=== PATIENT | male | born 1940 | race Caucasian/White ===

== ENCOUNTER 2018-06-15 06:09 | Day surgery (SDC) | payer MEDICARE ==
[2018-06-12 14:31] VITALS: BMI 25.8
[~2018-06-15 06:09] MED LIST: HYDROmorphone 0.5 MG/0.5 ML SYRINGE IVP PRN; LACTATED RINGERS 1,000 ML IV SCH; LIDOCAINE 1% 20 ML VIAL (10MG/ML) FOR IV START INTRADERMA PRN; ONDANSETRON 4 MG/2 ML VIAL IVP ONE; Pre Op ABX Message 1 EACH MISC MISCELLANE ONE
[2018-06-15 07:15] VITALS: TEMP 97.8
[2018-06-15] MEDS ORDERED: ONDANSETRON 4 MG/2 ML VIAL IVP ONE (07:28)
[2018-06-15] MEDS ORDERED: LIDOCAINE 1% 20 ML VIAL (10MG/ML) FOR IV START SQ ONE (07:28)
[2018-06-15] MEDS ORDERED: hydrALAZINE HCL 20 MG/ML 1 ML VIAL IV ONE (07:29)
--- NOTE | 2018-06-15 08:02 | P.GSHP ---
History of Present Illness H&P Date: 06/15/18 Chief Complaint: Atypical skin lesion on right upper back This is a 78-year-old male who recently underwent biopsy of a skin lesion on his right upper back. 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 He presents today for excision. Past Medical History Past Medical History: Hyperlipidemia, Hypertension Additional Past Medical History / Comment(s): FIBROXANTHOMA ON BACK. SELF CATHS History of Any Multi-Drug Resistant Organisms: None Reported Additional Past Surgical History / Comment(s): AAA REPAIR 11/28/16. COLONOSCOPY Past Anesthesia/Blood Transfusion Reactions: No Reported Reaction Smoking Status: Former smoker - Past Family History Mother Family Medical History: No Reported History Medications and Allergies Home Medications Medication Instructions Recorded Confirmed Type Aspirin [Adult Low Dose Aspirin EC] 81 mg PO DAILY 06/12/18 06/15/18 History Atenolol [Tenormin] 25 mg PO DAILY 06/12/18 06/15/18 History Losartan-Hctz 50-12.5 mg [Hyzaar 1 each PO DAILY 06/12/18 06/15/18 History 50-12.5] Simvastatin [Zocor] 40 mg PO HS 06/12/18 06/15/18 History Allergies Allergy/AdvReac Type Severity Reaction Status Date / Time No Known Allergies Allergy Verified 06/15/18 07:08 Surgical - Exam Vital Signs Temp Pulse Resp BP Pulse Ox 97.8 F 65 16 190/95 98 06/15/18 07:13 06/15/18 07:13 06/15/18 07:13 06/15/18 07:13 06/15/18 07:13 - General well developed, no distress - Eyes PERRL - ENT normal pinna - Neck no masses - Respiratory normal expansion - Cardiovascular Rhythm: regular - Abdomen Abdomen: non tender - Integumentary 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 We'll perform excision.
[2018-06-15] MEDS ORDERED: MIDAZOLAM 2 MG/2 ML VIAL ONE (08:06)
[2018-06-15] MEDS ORDERED: fentaNYL (PF) 50 MCG/ML 2 ML AMP ONE (08:06)
[2018-06-15] MEDS ORDERED: BUPIVACAIN-EPI 0.25%-1:200,000 30 ML VIAL SQ ONE ×2 (08:20)
--- NOTE | 2018-06-15 08:52 | P.OP ---
Date of Procedure: 06/15/18 Preoperative Diagnosis: Right upper back atypical fibroxanthoma Postoperative Diagnosis: Right upper back atypical fibroxanthoma Procedure(s) Performed: Excision of atypical back fibroxanthoma Anesthesia: MAC Surgeon: Josh Rouse Estimated Blood Loss (ml): 5 Pathology: other (Back fibro xanthoma) Condition: stable Description of Procedure: The patient's placed on the operative table in the lateral position. He received IV sedation. His back was prepped and draped usual sterile fashion. Elliptical skin incision was made around the back skin lesion. Specimen measured approximately 3 x 4 cm. The specimen was excised left cautery. The skin was closed interrupted 3-0 Monocryl suture. Dermabond was applied. Patient tolerated the procedure well.
[2018-06-15 09:19] VITALS: BP 155/76; PULSE 69; RESP 18
== END 2018-06-15 09:39 | disposition home or self-care (01) ==
LOC: OR 06:09
PROVIDERS: ATTEND Surgery
DX: D48.5 Neoplasm of uncertain behavior of skin (principal); E78.5 Hyperlipidemia, unspecified; I10 Essential (primary) hypertension; Z87.891 Personal history of nicotine dependence; Z79.82 Long term (current) use of aspirin; Z79.899 Other long term (current) drug therapy
CPT/HCPCS: 11404; 88305; 88342; 88341; J2250; J0360; J2405; J3010